=== PATIENT | male | born 1985 | race American Indian/Alaskan Native ===

== ENCOUNTER 2017-03-15 12:00 | Emergency (ER) | payer BC ==
[2017-03-15 12:53] VITALS: BP 137/97
[2017-03-15] MEDS ORDERED: MOTRIN PO ONE (15:13)
--- NOTE | 2017-03-15 15:15 | Emergency Department Report ---
ED Lower Extremity HPI - General Chief Complaint: Extremity Injury, Lower Stated Complaint: RT KNEE INJURY Time Seen by Provider: 03/15/17 14:58 Source: patient Mode of arrival: Ambulatory Limitations: No Limitations - History of Present Illness Initial Comments: 31-year-old male past medical history none presents with complaint of right upper thigh pain status post repetitive flexing motion of his right leg times one week ago. Patient states that he was doing and exercises which involve repetitive knee flexion and felt subsequent pain in his lower anterior right thigh region just above the knee with minor associated swelling and pain with knee flexion and extension. Patient is ambulatory but is wearing an Vinicius wrap and a knee brace. Patient denies any fever or chills denies any direct trauma no falls no blunt trauma forced to knee. MD Complaint: knee injury Onset/Timin -: week(s) Injury: Thigh: Right (pain just above right knee, minro swelling lateral knee) Type of Injury: other (repetetive) Place: home Severity: mild Severity scale (0 -10): 5 Improves With: NSAID, immobilization Worsens With: movement Associated Symptoms: swelling, ambulatory - Related Data Previous Rx's Medication Instructions Recorded Last Taken Type Amoxicillin/K Clav Tab [Augmentin 1 tab PO Q12HR #14 tab 06/27/15 Unknown Rx 875MG TAB] HYDROcodone/APAP 10-325 [Rhodell 1 each PO Q4-6H PRN #20 tablet 06/27/15 Unknown Rx 10/325] Ibuprofen [Motrin 600 MG tab] 600 mg PO Q6H PRN #30 tablet 06/27/15 Unknown Rx Naproxen [Naprosyn TAB] 500 mg PO BID PRN #30 tablet 03/15/17 Unknown Rx Allergies Allergy/AdvReac Type Severity Reaction Status Date / Time No Known Allergies Allergy Unverified 06/27/15 09:36 ED Review of Systems ROS: Stated complaint: RT KNEE INJURY Other details as noted in HPI Constitutional: denies: chills, fever Eyes: denies: eye pain, eye discharge, vision change ENT: denies: ear pain, throat pain Respiratory: denies: cough, shortness of breath, wheezing Cardiovascular: denies: chest pain, palpitations Endocrine: no symptoms reported Gastrointestinal: denies: abdominal pain, nausea, diarrhea Genitourinary: denies: urgency, dysuria Musculoskeletal: other. denies: back pain, joint swelling, arthralgia Skin: denies: rash, lesions Neurological: denies: headache, weakness, paresthesias Psychiatric: denies: anxiety, depression Hematological/Lymphatic: denies: easy bleeding, easy bruising ED Past Medical Hx - Past Medical History Previous Medical History?: No - Surgical History Past Surgical History?: Yes Additional Surgical History: RIGHT LOWER LEG - Social History Smoking Status: Never Smoker Substance Use Type: None - Medications Home Medications: Home Medications Medication Instructions Recorded Confirmed Last Taken Type Amoxicillin/K Clav Tab [Augmentin 1 tab PO Q12HR #14 tab 06/27/15 Unknown Rx 875MG TAB] HYDROcodone/APAP 10-325 [Rhodell 1 each PO Q4-6H PRN #20 tablet 06/27/15 Unknown Rx 10/325] Ibuprofen [Motrin 600 MG tab] 600 mg PO Q6H PRN #30 tablet 06/27/15 Unknown Rx Naproxen [Naprosyn TAB] 500 mg PO BID PRN #30 tablet 03/15/17 Unknown Rx ED Physical Exam - General Limitations: No Limitations General appearance: alert, in no apparent distress - Head Head exam: Present: atraumatic, normocephalic - Eye Eye exam: Present: normal appearance, PERRL, EOMI - ENT ENT exam: Present: mucous membranes moist - Neck Neck exam: Present: normal inspection - Respiratory Respiratory exam: Present: normal lung sounds bilaterally. Absent: respiratory distress - Cardiovascular Cardiovascular Exam: Present: regular rate, normal rhythm. Absent: systolic murmur, diastolic murmur, rubs, gallop - GI/Abdominal GI/Abdominal exam: Present: soft, normal bowel sounds - Rectal Rectal exam: Present: deferred - Extremities Exam Extremities exam: Present: normal inspection - Expanded Lower Extremity Exam Right Hip exam: Present: normal inspection, full ROM Upper Leg exam: Present: normal inspection, full ROM Knee exam: Present: full ROM, tenderness (minor amount of tenderness overlying right anteriro quadriceps region), swelling Lower Leg exam: Present: normal inspection, full ROM Ankle exam: Present: normal inspection, full ROM Foot/Toe exam: Present: normal inspection, full ROM Neuro vascular tendon exam: Present: no vascular compromise Gait: Positive: antalgic 1 - minor amoutn of pain and swelling here, no signs of cellulitis - Back Exam Back exam: Present: normal inspection - Neurological Exam Neurological exam: Present: alert, oriented X3, CN II-XII intact, normal gait - Psychiatric Psychiatric exam: Present: normal affect, normal mood - Skin Skin exam: Present: warm, dry, intact, normal color. Absent: rash ED Course Vital Signs 03/15/17 12:50 Temperature 98.2 F Pulse Rate 61 Respiratory 16 Rate Blood Pressure 137/97 O2 Sat by Pulse 99 Oximetry ED Lower Extremity MDM - Medical Decision Making A/P: Possible quadriceps injury 1- patient has intact flexion and extension of right knee but some pain with walking and mild swelling above the right patellar region and area of quadriceps tendon, patient may have damaged quadriceps tendon with repetitive knee flexion and extension exercises patient states he did one week ago which resulted in subsequent pain 2-Wells Score 0, unlikely dvt. Will give pt script for LE Duplex for tomorrow 3- naproxen prn for pain 4- f/u with orthopedics 5- knee immobilizer Critical care attestation.: If time is entered above; I have spent that time in minutes in the direct care of this critically ill patient, excluding procedure time. ED Disposition Clinical Impression: Strain of quadriceps Qualifiers: Encounter type: initial encounter Laterality: right Qualified Code(s): S76.111A - Strain of right quadriceps muscle, fascia and tendon, initial encounter Disposition: DISCHARGED TO HOME OR SELFCARE Is pt being admited?: No Does the pt Need Aspirin: No Condition: Stable Instructions: Muscle Strain (ED), Knee Immobilizer (ED) Additional Instructions: Patient to report for outpatient lower extremity duplex to rule out DVT on Prescriptions: Naproxen [Naprosyn TAB] 500 mg PO BID PRN #30 tablet PRN Reason: Pain Referrals: [facility] [Provider Group] - 3-5 Days LIA TAYLOR MD [Staff Physician] - 3-5 Days SAMANTHA MELENDEZ MD [Staff Physician] - 3-5 Days Forms: Accompanied Note, Work/School Release Form(ED)
--- NOTE | 2017-03-15 16:31 | XRay Report ---
FINAL REPORT EXAM: XR KNEE 3V RT HISTORY: c/o right sided knee pain, right knee swelling TECHNIQUE: Right knee 2 views PRIORS: None. FINDINGS: No fracture is identified. No dislocation seen. No evidence of joint effusion. Patella demonstrates normal positioning. No acute bony abnormality identified. IMPRESSION: Negative knee series
== END 2017-03-15 17:22 | disposition home or self-care (01) ==
LOC: ED 12:00
DX: S76.111A Strain of right quadriceps muscle, fascia and tendon, initial encounter (principal); X58.XXXA Exposure to other specified factors, initial encounter; Y93.9 Activity, unspecified; Y92.9 Unspecified place or not applicable; Y99.9 Unspecified external cause status
CPT/HCPCS: 99283

== ENCOUNTER 2017-03-16 09:32 | Outpatient (CLI) | payer BC ==
--- NOTE | 2017-03-17 08:18 | Vascular Lab Report ---
Right Lower Extremity Venous Duplex Study: Reason for Exam: Pain of the right lower extremity. Comments on the Right: All veins visualized are freely compressible without evidence of internal echogenicity. Flow is spontaneous and phasic throughout. No evidence of acute or chronic thrombus is seen in any of the vessels visualized. Comments on the Left: A limited duplex study was done of the proximal veins of the left lower extremity. All veins visualized are freely compressible without evidence of internal echogenicity. Flow is spontaneous and phasic throughout. No evidence of acute or chronic thrombus is seen in any of the vessels visualized. Impression: No evidence of acute or chronic deep venous thrombosis in the right lower extremity.
== END 2017-03-16 09:33 | disposition home or self-care (01) ==
LOC: VAS 09:32
PROVIDERS: ATTEND Physician Assistant
DX: M79.604 Pain in right leg (principal); M79.605 Pain in left leg